=== PATIENT | female | born 1960 | race Caucasian/White ===

== ENCOUNTER 2020-07-05 08:05 | Outpatient (CLI) | payer SELFPAY | END 2020-07-05 08:06 | disposition home or self-care (01) | LOC: ANHSURGERY 08:11 | PROVIDERS: PCP Internal Medicine; Visit Provider Obstetrics & Gynecology Gynecology | DX: N81.4 Uterovaginal prolapse, unspecified (principal) | CPT/HCPCS: 36415; 86850; 86900; 86901 ==

== ENCOUNTER 2020-07-07 00:33 | Outpatient (CLI) | payer OTHER, SELFPAY ==
[2020-07-07 19:29] LABS: SARS-CoV-2 RNA PCR Negative
== END 2020-07-07 00:34 | disposition home or self-care (01) ==
LOC: ANHCOVIDDT 00:33
PROVIDERS: PCP Internal Medicine; Visit Provider Obstetrics & Gynecology Gynecology
DX: Z01.812 Encounter for preprocedural laboratory examination (principal); Z11.59 Encounter for screening for other viral diseases
CPT/HCPCS: 87635; C9803; U0003

== ENCOUNTER 2020-07-10 00:25 | Day surgery (SDC) | payer SELFPAY ==
[2020-01-14 14:25] VITALS: BMI 23.0
[2020-06-08 14:39] VITALS: BMI 23.0
[2020-07-10] VITALS (14 sets, daily range): BP systolic 105–138; BP diastolic 55–78; PULSE 58–86; RESP 12–18; TEMP 36.1–37.1; O2SAT 94–100
--- NOTE | 2020-07-10 07:39 | PM.IMHP ---
H&P: HPI History of Present Illness Date/Time: 07/10/20 07:39 Chief complaint: cystocele, rectocele, uterine prolapse Narrative: Aixa Graham is a 60 year old female with symptomatic pelvic organ prolapse. Patient with longstanding cystocele and rectocele that have not bothered patient until recently. Patient with about 2 years slow onset of complaints of pelvic pressure and urinary frequency. Supported urodynamics revealed no leaking. Patient declined pessary use and chooses to proceed with surgical repair. Risks of recurrence reviewed. Procedure explained. Due to family history, patient also wants her tubes and ovaries removed. Risks of infection, bleeding, injury to internal organs (eg. bowel, bladder, ureters), new onset GSI, DVT, and anesthesia discussed. Patient agrees to proceed. Review of Systems Genitourinary: Genitourinary: Reports vaginal dryness PMFSH Past Medical History Medical History (Updated 07/10/20 @ 08:40 by Dorothy Jc MD) Arthritis GERD (gastroesophageal reflux disease) IBS (irritable bowel syndrome) (normal spontaneous vaginal delivery) x 3 Osteoporosis Reactive airway disease Vertigo Surgical History Surgical History (Updated 07/10/20 @ 08:10 by Martir Staton MD) H/O colonoscopy [place] teeth extracted Family History Family History (Updated 07/10/20 @ 08:21 by Dorothy Jc MD) Mother Diabetes mellitus Hypertension Son Ulcerative colitis Grandparent Ovarian cancer Father Heart disease Hypertension Social History Social History Smoking packs per day: 0 Smoking cigarettes per day: 0.0 Substance use: never Substance use type: does not use Living arrangements: with family Spiritual care concerns: No Meds Home Medications and Allergies Home Medications Medication Instructions Recorded Confirmed Type Occuvite 1 tablet PO DAILY 01/14/20 06/08/20 History calcium carbonate [Calcium 500] 500 mg PO DAILY 01/14/20 06/08/20 History cholecalciferol (vitamin D3) 2,000 unit PO DAILY 01/14/20 06/08/20 History [Vitamin D3] conjugated estrogens [Premarin] 1 applic VAGINAL 2XW 01/14/20 06/08/20 History esomeprazole magnesium 40 mg PO DAILY 01/14/20 06/08/20 History fexofenadine [Ronda Allergy] 180 mg PO DAILY 01/14/20 06/08/20 History ibandronate 150 mg PO MONTHLY 01/14/20 06/08/20 History metronidazole 1 applic TOPICAL DIRECTED PRN 01/14/20 06/08/20 History omega 8-omg-cyt-fish oil [Fish Oil] 1 cap PO DAILY 01/14/20 06/08/20 History vitamin B complex 1 tablet PO DAILY 01/14/20 06/08/20 History Allergies Allergy/AdvReac Type Severity Reaction Status Date / Time melon Allergy Severe BUMPS IN Verified 07/10/20 07:49 BACK OF THROAT monosodium glutamate Allergy Severe NUMBNESS Verified 07/10/20 07:49 OF TONGUE AND BACK OF THROAT cefprozil [From Cefzil] Allergy Mild Rash Verified 07/10/20 07:49 clarithromycin [From Biaxin] AdvReac Mild METALIC Verified 07/10/20 07:50 TASTE IN MOUTH codeine AdvReac Mild Nausea Verified 07/10/20 07:49 diclofenac [From Voltaren] AdvReac Mild Diarrhea Verified 07/10/20 07:51 Exam Const: General: healthy appearing and alert Orientation/consciousness: patient oriented x3 Resp: Effort & Inspection: normal respiratory effort Auscultation: clear to auscultation bilaterally Cardio: Rate: regular rate Rhythm: regular rhythm GI: GI Palp: Yes Soft to palpation, No Tenderness to palpation present (GI) and No Palpable mass present : External Female Exam: normal external appearance Speculum Exam - Vagina: normal appearance of the vagina, normal vaginal discharge, other (3 degree cystocele and rectocele) and Abnormal introitus Speculum Exam - Cervix: normal appearance of the cervix Bimanual exam- vagina & uterus: uterine size normal, consistency normal and other (uterus to spines) Bimanual Exam- A
[2020-07-10] MEDS: LACTATED RINGERS 1,000 ML 30 ML IV CONT ×3 (08:05→12:26)
[2020-07-10] MEDS: ACETAMINOPHEN 500 MG TABLET 1000 MG PO (08:08)
--- NOTE | 2020-07-10 08:08 | WPDANESEPPF ---
Anes - Initial Pre Proc Eval Procedure: Operation Date: 07/10/20 09:15 Proposed Procedures p Laparoscopic Assisted Vaginal Hysterectomy, Bilateral Salpingo-Oophorectomy, - Dorothy Jc MD s Anterior and Posterior Repair - Dorothy Jc MD Date/Time: 07/10/20 08:08 Surgeon: Dorothy Jc MD Pre Op Diagnosis: cystocele, rectocele, uterine prolapse Patient Data Age: 60 Gender: F Height: 5 ft Weight: 52.3 kg Last Vital Signs Temp 36.6 C 07/10/20 07:45 Pulse 66 07/10/20 07:45 Resp 18 07/10/20 07:45 BP 124/55 L 07/10/20 07:45 Pulse Ox 100 07/10/20 07:45 Allergies Allergy/AdvReac Type Severity Reaction Status Date / Time melon Allergy Severe BUMPS IN Verified 07/10/20 07:49 BACK OF THROAT monosodium glutamate Allergy Severe NUMBNESS Verified 07/10/20 07:49 OF TONGUE AND BACK OF THROAT cefprozil [From Cefzil] Allergy Mild Rash Verified 07/10/20 07:49 clarithromycin [From Biaxin] AdvReac Mild METALIC Verified 07/10/20 07:50 TASTE IN MOUTH codeine AdvReac Mild Nausea Verified 07/10/20 07:49 diclofenac [From Voltaren] AdvReac Mild Diarrhea Verified 07/10/20 07:51 Home Medications Medication Instructions Recorded Confirmed Type Occuvite 1 tablet PO DAILY 01/14/20 07/10/20 History calcium carbonate [Calcium 500] 500 mg PO DAILY 01/14/20 07/10/20 History cholecalciferol (vitamin D3) 2,000 unit PO DAILY 01/14/20 07/10/20 History [Vitamin D3] conjugated estrogens [Premarin] 1 applic VAGINAL 2XW 01/14/20 07/10/20 History esomeprazole magnesium 40 mg PO DAILY 01/14/20 07/10/20 History fexofenadine [Ronda Allergy] 180 mg PO DAILY 01/14/20 07/10/20 History ibandronate 150 mg PO MONTHLY 01/14/20 07/10/20 History metronidazole 1 applic TOPICAL DIRECTED PRN 01/14/20 07/10/20 History omega 9-phv-pzn-fish oil [Fish Oil] 1 cap PO DAILY 01/14/20 07/10/20 History vitamin B complex 1 tablet PO DAILY 01/14/20 07/10/20 History Patient hx anesthesia problems: none Family hx anesthesia problems: none [facility] Past Medical History Medical History (Updated 07/10/20 @ 08:09 by Martir Staton MD) Arthritis GERD (gastroesophageal reflux disease) Vertigo Surgical History Surgical History (Updated 07/10/20 @ 08:10 by Martir Staton MD) H/O colonoscopy [place] teeth extracted Social History Social History Smoking packs per day: 0 Smoking cigarettes per day: 0.0 Substance use: never Substance use type: does not use Living arrangements: with family Spiritual care concerns: No Anes - Eval Final PreProcedure Day of Procedure 07/10/20 08:08 Patient weight: normal Heart: regular rate and rhythm Lungs: clear to auscultation Airway: Mallampati scale class 1 Neurological: alert and oriented Last oral intake: >/= 8 hours ASA classification: II Emergent: no Anesthetic plan: proceed Anesthesia type and monitoring: general ETT and standard monitoring Informed Consent: The patient's anesthetic plan and its attendant risks and benefits were discussed with the patient/family/POA. Questions were solicited and answers provided to the satisfaction of the patient/family/POA.
[2020-07-10] MEDS: KETOROLAC 15 MG/ML VIAL (*BKC) IV PUSH (08:09)
[2020-07-10] MEDS: LIDO 1%/EPINEPHRINE 1:100,000 20 ML VIAL 10 ML INFILTRATE (09:03)
[2020-07-10] MEDS: ceFAZolin 2 GM/D5W 50 ML 2 GM/50 ML BAG IVPB (09:03)
--- NOTE | 2020-07-10 11:55 | PM.PROC ---
Procedure Note - Detailed Date of procedure: 07/10/20 Pre-op diagnosis: cystocele, rectocele, uterine prolapse Post-op diagnosis: same Procedure performed: LAVH-BSO; anterior and posterior repair Description of procedure: The patient is taken to the operating room and placed under general anesthesia in the dorsal lithotomy position. She has prepped and draped in usual sterile fashion. Rothman catheter is placed per OR staff. Jasper speculum was placed in the vagina and cervix grasped with a tenaculum anteriorly. [place] manipulator is placed and the speculum is removed. Attention is turned to the abdomen a vertical skin incision is made at the base of the umbilicus. The abdomen is tented and the Veress needle placed. Opening patient pressure is 5mmHg. Pneumoperitoneum was obtained to patient pressure of 15mmHg. The Veress needle is then removed and the 5mm Optiview trocar placed. Intra-abdominal placement was confirmed with the laparoscope. Patient is placed in Trendelenburg. A 5mm skin incision is made 2cm above the symphysis pubis in the midline. A 5mm trocars placed under direct visualization. A blunt probe was used to investigate the pelvis the right tube and ovary appeared to come well into the cul-de-sac and are freely mobile the left tube and ovary are less mobile but do appear to come in to the upper portion of the cul-de-sac. The decision was made to proceed with vaginal hysterectomy and the pneumoperitoneum was reduced. Trocars were left in place and covered with sterile towels. Attention was turned to the vagina the short weighted speculum was placed posteriorly. The Eliecer retractor was used anteriorly the cervix acorn manipulator is removed the tenaculum was left in place. The vaginal mucosa surrounding the cervix is injected with 1% lidocaine with epinephrine in a circumferential manner around the cervical os the scalpel was used to circumferentially incise the vaginal mucosa around the cervix. The vaginal mucosa is dissected off anteriorly with a Ray-Jensen and sharp dissection. The anterior peritoneum is entered with Metzenbaum scissors and the Eliecer retractor replaced through the peritoneal incision. The posterior vaginal mucosa is dissected off the cervix using a Ray-Jensen and sharp dissection the peritoneum was entered using Wolf scissors and the long curved weighted speculum is placed through the perineal incision. The minimally curved Z clamps are used to clamp the uterosacral and cardinal ligaments. These pedicles were tied off after transection using 0 Vicryl. They were tagged for future use. The uterine vessels were clamped transected and suture ligated with 0 Vicryl. The utero-ovarian ligaments were clamped transected and suture ligated with 0 Vicryl. These pedicles were tagged for future use the right tube is visualized and grasped with a [place]. The tube and ovary on the right are brought into the surgical field and the infundibulopelvic ligament clamped transected and suture ligated with 0 Vicryl. The left tube is visualized and grasped with a [place]. The ovary does not come down with the tube the tube was cross clamped with a Z clamp transected and suture ligated with 0 Vicryl. Decision was made to remove the left ovary at the end of the case laparoscopically. Vaginal instruments are removed the peritoneum was grasped anteriorly and posteriorly. The peritoneum was closed in a pursestring suture of 0 Ethibond incorporating the previously tagged uterosacral and cardinal ligaments. The vaginal mucosa was closed using 0 Vicryl in a running locked fashion. Attention was then turned to the rectocele the posterior speculum is removed the hymenal ring was grasped at per 5 and 7:00 a.m. with Allis clamps. The intervening tissue was incised using a scalpel. The vaginal mucosa is dissected off the midline using Metzenbaums and incised in the midline until the apex of the rectocele was reached Trisha clamps were used to grasp vaginal mu
[2020-07-10] MEDS: ONDANSETRON INJ 4 MG/2 ML VIAL IV PUSH (12:09)
--- NOTE | 2020-07-10 12:14 | PM.DS ---
DS: Admitting Diagnosis Admitting Diagnosis Admitting Diagnosis: cystocele, rectocele, uterine prolapse DS: Discharge Diagnosis Discharge Diagnosis (1) Prolapse of female pelvic organs: Code(s): N81.9 - Female genital prolapse, unspecified Status: Acute (2) S/P laparoscopic assisted vaginal hysterectomy (LAVH): Code(s): Z90.710 - Acquired absence of both cervix and uterus Status: Acute DS: Summary Hospital Course Reason for hospitalization: post op care Hospital Course: voiding, ambulating, and tolerating diet upon dc home Status at Discharge Functional status at discharge: independent ambulation Overall status at discharge: patient is progressing back to baseline Time Spent with Patient Time attestation: Total time spent providing and/or coordinating discharge services: DS: Data Data Completed and Pending Pending studies at discharge: Pending at discharge 07/10/20 11:36 Surgical [PTH] Routine Discharge Plan Discharge Patient Disposition: Home, Self-Care Discharge Instructions: Pelvic rest no lifting >10 lbs no driving for 2 wks shower for 6 wks Patient Instructions: Laparoscopic Hysterectomy (DC) Stand Alone Forms: General Discharge Instructions Follow-up/Referrals: Dorothy Jc MD [Physician] - 1 Week Discharge Medications: New hydrocodone-acetaminophen 5-325 mg Tablet 1 tab PO Q3H PRN (Reason: Pain Rated 5 Or Less) Qty: 10 RF: 0 Continued fexofenadine [Ronda Allergy] 180 mg Tablet 180 mg PO DAILY RF: 0 calcium carbonate [Calcium 500] 500 mg calcium (1,250 mg) Tablet 500 mg PO DAILY RF: 0 Premarin 0.625 mg/gram cream 1 applic vaginal 2XW RF: 0 esomeprazole magnesium 40 mg capsule,delayed release(DR/EC) 40 mg PO DAILY RF: 0 vitamin B complex Tablet 1 tablet PO DAILY RF: 0 ibandronate 150 mg tablet 150 mg PO MONTHLY RF: 0 cholecalciferol (vitamin D3) [Vitamin D3] 50 mcg (2,000 unit) Capsule 2,000 unit PO DAILY RF: 0 omega 9-wxj-ryt-fish oil [Fish Oil] 1,000 mg (120 mg-180 mg) Capsule 1 cap PO DAILY RF: 0 Occuvite 1 tablet PO DAILY RF: 0 metronidazole 0.75 % cream 1 applic TOPICAL DIRECTED PRN (Reason: Inflammation) RF: 0
--- NOTE | 2020-07-10 12:40 | SUR.PHASEI ---
[id number] [facility] FAXED FLOOR NOTIFIED
[2020-07-10] MEDS: DEXTROSE 5%/LACTATED RINGERS 1,000 ML 125 ML IV CONT (13:15)
[2020-07-10] MEDS: DEXTROSE 5%/LACTATED RINGERS 1,000 ML 125 ML (13:57)
[2020-07-10] MEDS: KETOROLAC 30 MG/ML VIAL (*BKC) (14:03)
--- NOTE | 2020-07-10 15:20 | PC.NURSE ---
This patient, Aixa Graham, was received from [id number] on 07/10/20 at 1520. Patient/family oriented to unit policies and routines
[2020-07-10] MEDS: KETOROLAC 30 MG/ML VIAL (*BKC) IV PUSH (21:16)
[2020-07-11 00:55] VITALS: BP 115/55; PULSE 82; RESP 18; TEMP 36.9; O2SAT 98
[2020-07-11 05:00] VITALS: BP 130/67; PULSE 86; RESP 18; TEMP 36.9; O2SAT 95
[2020-07-11 05:37] LABS: Basophils Percent Auto 0.2 % (0.2-1.2); Hematocrit 37.3 % (37.0-47.0); Hemoglobin 12.4 g/dL (12.0-15.0); Immature Granulocyte Absolute 0.04 K/mm3 (0.00-0.031); Immature Granulocyte Percent A 0.3 % (0-0.5); Lymphocytes Percent Auto 13.2 % (18.3-44.2); Mean Corpuscular HGB Conc 33.2 g/dl (32-36); Mean Corpuscular Hemoglobin 29.9 pg (26-34); Mean Corpuscular Volume 89.9 fl (80-100); Mean Platelet Volume 10.5 fl (7.4-10.4); Monocytes Absolute Auto 1.5 K/mm3 (0.1-0.6); Monocytes Percent Auto 10.7 % (2.6-8.5); Neutrophils Absolute Auto 10.9 K/mm3 (1.3-6.7); Neutrophils Percent Auto 75.6 % (45.5-73.1); Platelet Count Result 246 k/mm3 (150-375); Red Blood Count 4.15 M/mm3 (4.2-5.4); Red Cell Distribution Width 13.4 % (11.5-14.5); White Blood Count 14.4 K/mm3 (4.5-10.0)
--- NOTE | 2020-07-11 06:00 | PC.NURSE ---
removed vaginal packing
[2020-07-11] MEDS: PANTOPRAZOLE 40 MG TABLET PO (07:20)
[2020-07-11] MEDS: LORATADINE 10 MG TABLET PO (07:20)
[2020-07-11 07:30] VITALS: BP 125/57; PULSE 58; RESP 18; TEMP 36.7; O2SAT 96
--- NOTE | 2020-07-11 07:43 | P.PNAN_ITS ---
Anes - Prog Note Post-Op Date/Time: 07/11/20 07:43 Cardiovascular status: normal Respiratory status: normal Airway patency: baseline Mental status: baseline Post-Op hydration status: normal Vital Signs: Last Vital Signs Temp 36.9 C 07/11/20 05:00 Pulse 86 07/11/20 05:00 Resp 18 07/11/20 05:00 BP 130/67 07/11/20 05:00 Pulse Ox 95 07/11/20 05:00 I/O: Intake & Output 07/10/20 07/10/20 07/11/20 15:59 23:59 07:59 Intake Total 518 570 1750 Output Total 75 250 3950 Balance 725 110 -2150 Laboratory Tests 07/11/20 04:46 07/11/20 04:46 WBC 14.4 H RBC 4.15 L Hgb 12.4 Hct 37.3 MCV 89.9 MCH 29.9 MCHC 33.2 RDW 13.4 Plt Count 246 MPV 10.5 H Immature Gran % (Auto) 0.3 Neut % (Auto) 75.6 H Lymph % (Auto) 13.2 L [place] % (Auto) 10.7 H Eos % (Auto) 0.0 Baso % (Auto) 0.2 Lymph # (Auto) 1.90 [place] # (Auto) 1.5 H Eos # (Auto) 0.0 Baso # (Auto) 0.0 Abs Immat Gran (auto) 0.04 H Absolute Neuts (auto) 10.9 H Absolute Nucleated RBC 0.0 Nucleated RBC % 0.0 Post-procedural complaints: none Patient Feedback: Patient satisfied with anesthetic care.
[2020-07-11] MEDS: ACETAMINOPHEN 325 MG TABLET 650 MG (09:40)
--- NOTE | 2020-07-11 13:13 | PM.GYNPNOP ---
INJECTION MOLD TOOLING TECHNICIAN - A/P Postoperative Procedures: Procedures Operation Date: 07/10/20 09:15 Actual Procedures Side Surgeon p Laparoscopic Assisted Vaginal Hysterectomy, Bilateral Salpingo-Oophorectomy, Bilateral Dorothy Jc MD s Anterior and Posterior Repair Not Applicable Dorothy Jc MD Postoperative day: 1 Postoperative status: doing well Postoperative plan: advance diet and discharge (once tolerating diet) Time Spent With Patient Time: Total time spent is greater than 50% in coordination of care (as documented) at patient's floor/unit and/or counseling patient: Time with patient: less than 15 minutes INJECTION MOLD TOOLING TECHNICIAN- PN:Subj Post-Op Subjective Date/time seen: 07/11/20 13:13 Subjective: pain is well controlled and patient reports nausea Exam GI: Other: incisions c/d/i bruising noted lower left INJECTION MOLD TOOLING TECHNICIAN - PN: Obj Data Vital Signs Vital Signs: Vital Signs - 24 hr 07/10/20 13:15 07/10/20 13:30 07/10/20 14:00 Temperature Pulse Rate 64 68 76 Respiratory Rate 16 16 16 Blood Pressure 138/70 134/74 130/77 Pulse Oximetry 94 100 99 07/10/20 14:30 07/10/20 15:00 07/10/20 16:00 Temperature 97.8 F 98.3 F Pulse Rate 78 80 86 Respiratory Rate 16 16 16 Blood Pressure 133/59 L 132/66 121/75 Pulse Oximetry 99 98 97 07/10/20 19:15 07/11/20 00:55 07/11/20 05:00 Temperature 98.8 F 98.4 F 98.4 F Pulse Rate 72 82 86 Respiratory Rate 18 18 18 Blood Pressure 127/57 L 115/55 L 130/67 Pulse Oximetry 97 98 95 07/11/20 07:30 Temperature 98.1 F Pulse Rate 58 L Respiratory Rate 18 Blood Pressure 125/57 L Pulse Oximetry 96 Intake/Output Intake/Output: Intake & Output 07/08/20 07/09/20 07/10/20 07/11/20 23:59 23:59 23:59 23:59 Intake Total 1160 1800 Output Total 325 3950 Balance 835 -2150 Meds/Results Medications: Active Medications Generic Name Dose Route Start Last Admin Trade Name Freq PRN Reason Stop Dose Admin Acetaminophen 650 mg 07/11/20 09:28 Tylenol Tablet PO Q4H PRN Mild Pain (1-3) or Fever Hydrocodone Bitart/Acetaminophen 1 tab 07/10/20 12:55 Eastern 5-325 Mg PO Q3H PRN Pain Rated 5 or Less Hydrocodone Bitart/Acetaminophen 1 tab 07/10/20 12:55 Eastern 10-325 Mg PO Q3H PRN Pain Rated 6 or Greater Ibuprofen 600 mg 07/10/20 12:55 Motrin PO Q6H PRN Cramping Ketorolac Tromethamine 30 mg 07/10/20 12:55 07/10/20 21:16 Toradol Inj IV PUSH 07/15/20 12:56 30 mg Q6H PRN Administration Pain Rated 4-6 Loratadine 10 mg 07/11/20 09:00 07/11/20 07:20 Claritin PO 10 mg QAM NICK Administration Naloxone HCl 0.1 mg 07/10/20 12:55 Narcan IV PUSH Q2M PRN Respiratory rate less than 10 Ondansetron HCl 4 mg 07/11/20 07:57 Zofran Odt PO Q6H PRN Nausea And Vomiting Pantoprazole Sodium 40 mg 07/11/20 09:00 07/11/20 07:20 Protonix PO 40 mg QAM NICK Administration Simethicone 80 mg 07/10/20 12:55 Mylicon PO Q2H PRN Gas Labs CBC & Chem 7: 07/11/20 04:46 Labs: Laboratory Results - last 24 hr 07/11/20 04:46 WBC 14.4 H RBC 4.15 L Hgb 12.4 Hct 37.3 MCV 89.9 MCH 29.9 MCHC 33.2 RDW 13.4 Plt Count 246 MPV 10.5 H Immature Gran % (Auto) 0.3 Neut % (Auto) 75.6 H Lymph % (Auto) 13.2 L [place] % (Auto) 10.7 H Eos % (Auto) 0.0 Baso % (Auto) 0.2 Lymph # (Auto) 1.90 [place] # (Auto) 1.5 H Eos # (Auto) 0.0 Baso # (Auto) 0.0 Abs Immat Gran (auto) 0.04 H Absolute Neuts (auto) 10.9 H Absolute Nucleated RBC 0.0 Nucleated RBC % 0.0
== END 2020-07-11 13:30 | disposition home or self-care (01) ==
LOC: ANHSURGERY 12:28 → ANHOB2 13:44
PROVIDERS: PCP Internal Medicine; Visit Provider Obstetrics & Gynecology Gynecology
PROC: 0UT9FZZ Resection of Uterus, Via Natural or Artificial Opening With Percutaneous Endoscopic Assistance (ICD-10-PCS; CPT 58571; principal; 2020-07-10 09:15)
PROC: (CPT 57260; 2020-07-10 09:15)
DX: N81.4 Uterovaginal prolapse, unspecified (principal); Z23 Encounter for immunization; K21.9 Gastro-esophageal reflux disease without esophagitis
CPT/HCPCS: 58571; 36415; 85025; 88307; 90471; 90686; 99199; A9270; G0008; J0690; J1100; J1170; J1885; J2250; J2405; J2704; J2710; J3010; J7030; J7120; J7121